=== PATIENT | female | born 1965 | race Caucasian/White ===

== ENCOUNTER → 2017-05-07 | Emergency (ER) | payer MEDICARE ==
[~2017-05-07] VITALS: Ht 149.9 cm; Wt 83.0 kg
[~2017-05-07] MED LIST: BUPIVACAINE 0.5%/EPI 30 ML SDV INJ ONE; GABAPENTIN100 MG; KETOROLAC TROMETHAMINE 30 MG/ML VIAL IM ONE; LEXAPRO10 MG PO; LIDOCAINE HCL 2% LOCAL 20 ML VIAL INJ ONE; METHYLPREDNISOLONE SOD SUCC 40 MG/ML VIAL INJ ONE; ROBAXIN-750750 MG PO; TRAZODONE HCL150 MG; WELLBUTRIN SR150 MG
== END | disposition home or self-care (01) ==
LOC: FSED 15:56
DX: M25.511 Pain in right shoulder (principal); S46.811A Strain of other muscles, fascia and tendons at shoulder and upper arm level, right arm, initial encounter; M62.838 Other muscle spasm; M25.562 Pain in left knee; M25.561 Pain in right knee; G89.29 Other chronic pain; F32.9 Major depressive disorder, single episode, unspecified
CPT/HCPCS: 20553; 73030; 99283; J1885; J2001; J2920

== ENCOUNTER 2017-07-16 09:02 | Emergency (ER) | payer MEDICARE ==
[~2017-07-16 09:02] MED LIST changes: -BUPIVACAINE 0.5%/EPI 30 ML SDV INJ ONE; -KETOROLAC TROMETHAMINE 30 MG/ML VIAL IM ONE; -LIDOCAINE HCL 2% LOCAL 20 ML VIAL INJ ONE; -METHYLPREDNISOLONE SOD SUCC 40 MG/ML VIAL INJ ONE
--- OUTSIDE RECORDS SUMMARY | 2017-07-16 09:03 | XMS REPORT | Continuity of Care Document ---
Author Author [facility] Organization [facility] Address [address] [place] [address] Phone Unavailable Care Team Providers Care Video Recorder Mechanic Name Role Phone NONSTAFF PCP Unavailable Insurance Providers Guarantor Sterling Ferrell Address [address] [place] [id number] Payer [employer] Medicare Advantage Policy Number [id number] Subscriber's Name GhassanSterling Warren Relationship 16 Self / Same As Patient Advance Directives Directive Response Recorded Date/Time Does the patient have an advance directive? No 05/07/17 4:05pm If yes, is advance directive on file with [facility]? No 05/07/17 4:05pm If not on file with [facility] will patient provide a copy? No 05/07/17 4:05pm Do you have a Directive to Physician? No 05/07/17 4:05pm Do you have a Medical Power of Traffic Reporter? No 05/07/17 4:05pm Do you have an out of hospital Do Not Resuscitate Order? No 05/07/17 4:05pm Do you have any special needs we should be aware of? No 05/07/17 4:05pm Do you have a support person here with you today? No 05/07/17 4:06pm Did patient receive Notice of Privacy Practices? Yes 05/07/17 4:06pm Did patient receive patient rights and responsibilities? Yes 05/07/17 4:06pm Chief Complaint and Reason for Visit Chief Complaint Extremity Trauma/Pain Reason for Visit Strain of right trapezius muscle Muscle spasm Problems Medical Problem Onset Date Status Muscle spasm Unknown Acute Strain of right trapezius muscle Unknown Acute Medications Current Home Medications Medication Dose Units Route Directions Days Qty Instructions Start Date Bupropion Hcl (Wellbutrin Sr) 150 Mg Tablet.er Escitalopram Oxalate (Lexapro) Unknown Strength Tablet Unknown Dose Oral Daily 30 Tab Gabapentin Unknown Strength Capsule Unknown Dose Methocarbamol (Robaxin-750) 750 Mg Tablet 1-2 Tab Oral Three Times A Day as needed for Pain 20 Tab 05/07/17 Trazodone Hcl Unknown Strength Tablet Unknown Dose Social History Smoking Status Start Date Stop Date Never Smoker Hospital Discharge Instructions No hospital discharge instruction information available. Plan of Care Discharge Date 05/07/17 5:58pm Disposition HOME, SELF-CARE Condition at Discharge Stable Instructions/Education Provided Strains Forms Provided Work/School Excuse Prescriptions See Medication Section Referrals Caryn Wilson Additional Instructions/Education Alternate heat and ice. May use OTC analgesics as other conditions allow. Functional Status No functional status information available. Allergies, Adverse Reactions, Alerts Allergen Type Severity Reaction Status Last Updated Benazepril Allergy Intermediate "itching" Active 05/07/17 Tazobactam Allergy Mild "veins pop out" Active 05/07/17 Piperacillin Allergy Mild "veins pop out" Active 05/07/17 Immunizations No immunization information available. Vital Signs Acute Vital Signs Vital Response Date/Time Height 4 ft 11 in 05/07/2017 4:22pm Weight 183 lb 05/07/2017 4:22pm Body Mass Index 37.0 kg/m^2 05/07/2017 4:22pm Results No relevant diagnostic test, laboratory data and/or discharge summary information available. Procedures Procedure Status Date Provider(s) INJECT TRIGGER POINTS 3/> Completed 05/07/17 RAJINDER MEJIA MD Encounters Encounter Location Arrival/Admit Date Discharge/Depart Date Attending Provider Departed Emergency Room [facility] 05/07/17 3:56pm 5:58pm RAJINDER MEJIA MD Recent Diagnosis
--- OUTSIDE RECORDS SUMMARY | 2017-07-16 09:04 | XMS REPORT | Summary of Care ---
Author Author [facility] Organization [facility] Address [address], [address] [place] [address] Phone Care Team Providers Care Operations Dispatcher Name Role Phone NAOMY Santos, ELVER Unavailable Unavailable PAULINA Santos, JUAN JOSE Unavailable Unavailable Elina VENTURA, Xander Unavailable Unavailable DUONG VENTURA, NATALIIA Unavailable Unavailable PAULINA VENTURA WY, JUAN JOSE Unavailable Unavailable KENNETH TARA W[place], PRESTON XIONG Unavailable Unavailable ELINA Santos, XANDER Unavailable Unavailable Unavailable Unavailable Functional Status Name Dates Details Functional status health issues are not documented Status: Name Dates Details Cognitive status health issues are not documented Status: Problems Name Dates Details Bilateral hearing loss (389.9, H91.93) Status: Active Chronic right shoulder pain (719.41, M25.511) Status: Active Trigger ring finger of left hand (727.03, M65.342) Status: Active Breast cancer screening (V76.10, Z12.31) Status: Active Bipolar mood disorder (296.80, F31.9) Status: Active Obesity (BMI 30-39.9) (278.00, E66.9) Status: Active Abnormal liver enzymes (790.5, R74.8) Status: Active Colon cancer screening (V76.51, Z12.11) Status: Active Elevated LFTs (790.6, R79.89) Status: Active Medications Name Dates Details BuPROPion HCl ER (XL) 300 MG Oral Tablet Extended Release 24 Hour TAKE 1 TABLET BY MOUTH DAILY Quantity: 90 GALLARDO M.D.JUAN JOSE Active TraZODone HCl - 50 MG Oral Tablet TAKE 1 TABLET AT BEDTIME. * Quantity: 90 Refills: 0 PAULINA M.D.JUAN JOSE Active Escitalopram Oxalate 20 MG Oral Tablet TAKE ONE (1) TABLET(S) BY MOUTH ONCE A DAY. * Quantity: 90 Refills: 0 PAULINA M.D.JUAN JOSE Active Multi Complete CAPS * Refills: 0 Active Biotin TABS * Refills: 0 Active B-12 CAPS * Refills: 0 Active Gabapentin TABS TAKE 1 TABLET DAILY DIRECTED. * Refills: 0 Active LamoTRIgine 100 MG Oral Tablet take 1 tab daily * Quantity: 30 Refills: 2 PAULINA Santos JUAN JOSE * Start : 28-Apr-2017 Active Suprep Bowel Prep Kit 17.5-3.13-1.6 GM/180ML Oral Solution DILUTE CONTENTS AND USE DIRECTED FOR BOWEL PREP * Quantity: 1 Refills: 0 ELVER MORALEZ M.D. 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 History of suicide attempt (V11.8, Z91.5) Status: Resolved Procedures Procedure Dates Details Colonoscopy Date: 13-Jul-2017 [QH] CELIAC DISEASE PANEL 2 WITH REFLEX TO ENDOMYSIAL ANTIBODY TITER Date: Jul-2017 [QH] SMOOTH MUSCLE AB W/REFL TITER Date: 13-Jul-2017 US Abdomen complete [id number] Date: 13-Jul-2017 MA Digital Mammo Screening Darryl [id number] Date: 27-Jun-2017 History of appendectomy Completed History of section Completed History of hysterectomy Completed History of tonsillectomy Completed History of gallbladder surgery Completed History of knee replacement Completed Immunization Name Dates Details Fluzone Quadrivalent 0.5 ML Intramuscular Suspension Prefilled Syringe on: 10-Mar-2017 Family History Name Dates Details Family history of cardiac disorder (V17.49, Z82.49) Comments: Family History Status: Active Social History Name Dates Details - Status: Name Dates Details Never smoker Vital Signs Date Test Result Details 13-Jul-20179:54 BP Systolic 132 mm[Hg] Status: Comments: Location: RUE; Position: Sitting BP Diastolic 83 mm[Hg] Status: Comments: Location: RUE; Position: Sitting Weight 172 lb Status: Body Mass Index Calculated 34.74 kg/m2 Status: Body Surface Area Calculated 1.73 m2 Status: Temperature 98 f Status: Comments: Method: Oral Heart Rate 64 /min Status: Comments: Location: R Radial; :52 BP Systolic 123 mm[Hg] Status: Comments: Location: LUE; Position: Sitting BP Diastolic 77 mm[Hg] Status: Comments: Location: LUE; Position: Sitting Weight 174.5 lb Status: Body Mass Index Calculated 35.24 kg/m2 Status: Body Surface Area Calculated 1.74 m2 Status: Temperature 98.4 f Status: Comments: Method: Temporal Heart Rate 50 /min Status: Height 59 in Status: Respiration Rate 16 /min Status: Results Date Description Value Details :38 [QL] AGUSTINA PANEL, COMPREHENSIVE AGUSTINA SCREEN, IFA NEGATIVE (Normal) Range: NEGATIVE Comments: AGUSTINA IFA is a first line screen for detecting thepresence of up to approximately 150 autoantibodies invarious autoimmune diseases. A negative AGUSTINA IFA resultsuggests AGUSTINA-associated autoimmune diseases are notpresent at this time. Visit Physician FAQs for interpretation of allantibodies in the [place], prevalence, and associationwith diseases at http:// education.crealytics/faq/NLY221 DNA (DS) ANTIBODY <1 {IU/ml} (Normal) Comments: IU/mL Interpretation < or=4 Negative 5-9 Indeterminate > or=10 Positive SCL-70 ANTIBODY <1.0 NEG {AI} (Normal) Range: <1.0 NEG SM ANTIBODY <1.0 NEG {AI} (Normal) Range: <1.0 NEG SM/YARN BLEACHING MACHINE OPERATOR ANTIBODY <1.0 NEG {AI} (Normal) Range: <1.0 NEG SJOGREN''S ANTIBODY (SS-A) <1.0 NEG {AI} (Normal) Range: <1.0 NEG SJOGREN''S ANTIBODY (SS-B) <1.0 NEG {AI} (Normal) Range: <1.0 NEG :38 [QL] HEPATITIS PANEL HEPATITIS A AB, TOTAL NON-REACTIVE (Normal) Range: NON-REACTIVE HEPATITIS B SURFACE ANTIBODY QL REACTIVE (Abnormal) Range: NON-REACTIVE HEPATITIS B SURFACE ANTIGEN NON-REACTIVE (Normal) Range: NON-REACTIVE HEPATITIS B CORE AB TOTAL NON-REACTIVE (Normal) Range: NON-REACTIVE HEPATITIS C ANTIBODY NON-REACTIVE (Normal) Range: NON-REACTIVE SIGNAL TO CUT-OFF 0.02 (Normal) Range: <1.00 :38 [QLH] MITOCHONDRIAL ANTIBODY W/REFL TITER MITOCHONDRIAL AB SCREEN NEGATIVE Range: NEGATIVE Comments: This test was developed and its analytical performancecharacteristics have been determined by [facility] [place]. It has not beencleared or approved by FDA. This assay has been validatedpursuant to the CLIA regulations and is used for clinicalpurposes. MITOCHONDRIAL AB TITER TNP {titer} Comments: Test Not Performed. Screening test Negative or Not Detected.Titer not performed. :38 [QLH] HEPATIC FUNCTION PANEL PROTEIN, TOTAL 6.4 g/dl (Normal) Range: 6.1-8.1 ALBUMIN 4.3 g/dl (Normal) Range: 3.6-5.1 GLOBULIN 2.1 {G/DL__CALC} (Normal) Range: 1.9-3.7 ALBUMIN/GLOBULIN RATIO 2.0 {CALC} (Normal) Range: 1.0-2.5 BILIRUBIN, TOTAL 0.3 mg/dl (Normal) Range: 0.2-1.2 BILIRUBIN, DIRECT 0.1 mg/dl (Normal) Range: < OR=0.2 BILIRUBIN, INDIRECT 0.2 {MG/DL__CAL} (Normal) Range: 0.2-1.2 ALKALINE PHSPHATASE 127 u/l (Normal) Range: 33-130 AST 45 u/l (Above high threshold) Range: 10-35 ALT 34 u/l (Above high threshold) Range: 6-29 :38 [QLH] IRON AND TOTAL IRON BINDING CAPACITY IRON, TOTAL 69 {mcg/dl} (Normal) Range: 45-160 IRON BINDING CAPACITY 271 {mcg/dL__ca} (Normal) Range: 250-450 % SATURATION 25 {%__CALC} (Normal) Range: 11-50 :38 [QL] ACTIN (SMOOTH MUSCLE) ANTIBODY (IGG) ACTIN (SMOOTH MUSCLE) ANTIBODY (IGG) <20 U Comments: Reference Range: <20 NEGATIVE > OR=20 POSITIVE Antibodies recognizing actin are the main componentof smooth muscle antibodies associated withautoimmune liver disease. Actin antibodies arefound in approximately 75% of patients withautoimmune hepatitis (AIH) type 1, [id number]% of patients with autoimmune cholangitis ,approximately 30% of patients with primary biliarycirrhosis, and approximately 2% of healthy people.High values are closely correlated with AIH type 1. 63-Pmt-48834:38 [QLH] CERULOPLASMIN CERULOPLASMIN 36 mg/dl (Normal) Range: 18-53 29-Zhy-82265:38 [QLH] FERRITIN Comments: REPORT COMMENT:FASTING:YES FERRITIN 216 ng/ml (Normal) Range: 10-232 5-Bnp-[id number]:50 [H] Celiac Pnl w/Rflx Endomy Ab Ttr IgA Lvl 71.0 mg/dl Range: 68.0-378.0 Gliadin (Deamidated Peptide)IgA Ab <0.2 U/ml Range: <=14.9 Gliadin (Deamidated Peptide)IgG Ab <0.4 U/ml Range: <=14.9 Tissue Transglutaminase (tTG) IgA <0.5 U/ml Range: <=14.9 Tissue Transglutaminase (tTg) IgG <0.8 U/ml Range: <=14.9 9-[id number]:50 [QLH] SED RATE BY MODIFIED WESTERGREN Sedimentation Rate 10 {mm/hr} Range: 0-20 Plan of Care Name Dates Details Planned Observations Planned Goals not documented Planned Encounters Appointment; PRESTON COOPER P.A. On: 25-Jul-2017 9:15 Appointment; RODY GUTIERREZ M.D. On: 01-Aug-2017 10:30 Appointment; LUDMILA JUAREZ M.D. On: 04-Aug-2017 11:15 Appointment; ELVER MORALEZ M.D. On: 04-Aug-2017 12:30 Instructions Name Dates Details Instructions not documented Encounters Appointment; ALBERTO WEAVER M.D. Encounter Diagnosis: Problem not documented On: 28-Mar-2017 8:30 Appointment; JUAN JOSE GALLARDO M.D. Encounter Diagnosis: Problem not documented On: 25-Apr-2017 9:00 Appointment; LOYDA LAYNE Encounter Diagnosis: Problem not documented On: 28-Apr-2017 14:00 Appointment; ALBERTO WEAVER M.D. Encounter Diagnosis: Problem not documented On: 28-Apr-2017 14:45 Appointment; GALALRDO, SHAOJIE, M.D. Encounter Diagnosis: Problem not documented On: 09-May-2017 10:30 Appointment; XANDER ANTOINE M.D. Encounter Diagnosis: Problem not documented On: 27-Jun-2017 9:00 Appointment; PRESTON COOPER P.A. Encounter Diagnosis: Problem not documented On: 27-Jun-2017 9:15 Appointment; JUAN JOSE GALLARDO M.D. Encounter Diagnosis: Problem not documented On: 27-Jun-2017 9:30 Appointment; RODY GUTIERREZ M.D. Encounter Diagnosis: Problem not documented On: 11-Jul-2017 11:45 Appointment; ELVER MORALEZ M.D. Encounter Diagnosis: Problem not documented On: 13-Jul-2017 10:00
[2017-07-16] MEDS ORDERED: LAMOTRIGINE100 MG PO (09:20)
[2017-07-16] MEDS ORDERED: NASONEX17 GM (09:40)
[2017-07-16] MEDS ORDERED: IBUPROFEN400 MG PO (09:40)
[2017-07-16] MEDS ORDERED: BROMFED DM COU118 ML PO (09:40)
[2017-07-16] MEDS ORDERED: KETOROLAC TROMETHAMINE 30 MG/ML VIAL IM ONE (09:45)
== END 2017-07-16 09:46 | disposition home or self-care (01) ==
LOC: FSED 09:02
DX: J02.9 Acute pharyngitis, unspecified (principal); B34.9 Viral infection, unspecified; H92.03 Otalgia, bilateral; F32.9 Major depressive disorder, single episode, unspecified
CPT/HCPCS: 96372; 99282